=== PATIENT | male | born 1965 | race Caucasian/White ===

== ENCOUNTER 2020-08-26 13:20 | Emergency (ER) | payer OTHER ==
[~2020-08-26] VITALS: Ht 177.8 cm; Wt 90.9 kg
[2020-08-26 13:42] VITALS: Ht 177.8 cm; Wt 90.9 kg
[2020-08-26 14:03] LABS: BASOPHILS 0.4 % (0-2); EOSINOPHILS 0.7 % (0-7); HEMATOCRIT 42.8 % (42.0-54.0); HEMOGLOBIN 14.3 g/dL (13.5-17.5); IMMATURE GRANULOCYTES 0.1 % (0-5); LYMPHOCYTES 40.6 % (15-50); MCH 30.4 pg (26.0-34.0); MCHC 33.4 g/dL (31.0-37.0); MCV 91.1 fL (80.0-100.0); MEAN PLATELET VOLUME 9.5 fL (7.4-10.4); MONOCYTES 6.3 % (2-11); NEUTROPHILS 51.9 % (40-80); PLATELET COUNT 356 10x3/uL (130-400); RDW 12.7 % (11.5-14.5); WBC 7.6 10x3/uL (4.8-10.8)
[2020-08-26 14:09] LABS: APTT 29.5 SECONDS (22.8-39.4); INR 1.08 (0.85-1.17)
[2020-08-26 14:10] LABS: CALC OSMOLALITY 277 mosm/kg (275-300); CALCIUM 9.1 mg/dL (8.5-10.1); CARBON DIOXIDE 25.5 mmol/L (21.0-32.0); CHLORIDE - SERUM 105 mmol/L (98-107); CREATININE - SERUM 1.2 mg/dL (0.6-1.3); GLUCOSE 84 mg/dL (74-106); SODIUM 138 mmol/L (136-145); UREA NITROGEN 20 mg/dL (7-18); eGFR NON AFRICAN AMERICAN 67 mL/min (90-120)
[2020-08-26 14:26] LABS: ALKALINE PHOSPHATASE 49 U/L (30-120); ALT (SGPT) 22 U/L (10-68); BILIRUBIN - TOTAL 0.67 mg/dL (0.2-1.3); CKMB 3.7 U/L (0.0-3.6); CREATINE KINASE 229 UL (21-232); MAGNESIUM - SERUM 2.1 mg/dL (1.8-2.4); PROTEIN - SERUM 6.7 g/dL (6.4-8.2); THYROID STIMULATING HORMONE 2.06 uIU/mL (0.36-3.74)
[2020-08-26 14:28] LABS: TROPONIN-I < 0.017 ng/mL (0.000-0.060)
[2020-08-26 16:08] VITALS: BP 116/50
== END 2020-08-26 18:39 | disposition other institution (70) ==
LOC: D.ER 13:20
PROVIDERS: Family Medicine
DX: I69.319 Unspecified symptoms and signs involving cognitive functions following cerebral infarction (principal); G81.92 Hemiplegia, unspecified affecting left dominant side